=== PATIENT | male | born 1995 | race Caucasian/White ===

== ENCOUNTER 2022-12-21 02:06 | Emergency (ER) | payer SELFPAY ==
[~2022-12-21] VITALS: Ht 172.7 cm; Wt 68.3 kg
[2022-12-21] MEDS ORDERED: AMOX TR-K CLV1 EAC1 PO (02:47)
[2022-12-21 02:54] VITALS: BP 117/86
== END 2022-12-21 02:55 | disposition home or self-care (01) ==
LOC: ED 02:06
DX: K04.7 Periapical abscess without sinus (principal); Z88.8 Allergy status to other drugs, medicaments and biological substances
CPT/HCPCS: 64400; 99282-25